=== PATIENT | male | born 1995 | race Caucasian/White ===

== ENCOUNTER 2024-07-09 08:57 | Emergency (ER) | payer MEDICAID, SELFPAY ==
[2024-07-09 08:59] VITALS: BP 110/63; PULSE 70; RESP 15; TEMP 36.6; O2SAT 99
--- NOTE | 2024-07-09 09:00 | DI.RAD_ITS ---
Exam(s) XR ANKLE LT COMPLETE EXAM: XR ANKLE LT COMPLETE CLINICAL HISTORY: left lateral pain post twisting injury TECHNIQUE: 2D digital imaging was performed. Three views. COMPARISON: No exams were available for comparison FINDINGS: BONES: No acute fracture is present. No bony destructive lesion is seen. JOINTS:The ankle mortise is normally aligned. SOFT TISSUE: Normal. IMPRESSION: Unremarkable radiographs of the left ankle. DATA REPOSITORY: RADIATION DOSE DELIVERED:
[2024-07-09] MEDS: Ibuprofen 600 MG TAB PO (09:27)
[2024-07-09] MEDS: oxyCODONE 5 MG TAB PO (09:28)
--- NOTE | 2024-07-09 09:31 | ED.GENADUL_ITS ---
Discharge Plan Disposition Patient Disposition: Home Condition: Stable Discharge Details Clinical Impression: Sprain of ankle Primary Care Provider: Devin Koch ED Provider: Maribel Yadav Home Meds and New Rx's Prescriptions: Continued albuterol sulfate 90 mcg/actuation HFA aerosol inhaler 2 inh INHALATION Q6H PRN Patient Comments: INHALE TWO PUFFS BY MOUTH EVERY 6 HOURS NEEDED FOR WHEEZING Discharge Instructions Instructions: Ankle Sprain ED Additional Instructions: please follow-up for repeat assessment in one week with persistent pain motrin/tylenol as needed for pain ice, elevated weightbearing as tolerated return earlier should new concerns arise Referrals: Devin Koch [Primary Care Provider] - HPI General Date/Time Provider Initiated Documentation: 07/09/24 09:07 . HPI Narrative: 29-year-old male presenting with injury to left ankle. Patient states he stepped off a porch twisted his ankle. Denies any additional injuries. States he is unable to bear weight secondary to pain. Related Data Home Medications ?Medication ?Instructions ?Recorded ?Confirmed albuterol sulfate 90 mcg/actuation 2 inh inhalation Q6H PRN 07/09/24 07/09/24 aerosol inhaler Allergies Allergy/AdvReac Type Severity Reaction Status Date / Time No Known Allergies Allergy Unverified 07/09/24 09:05 General Stated Complaint: Orthopedic TIMUR: 4 Exam Narrative Exam Narrative: Left lateral ankle with tenderness, no visible signs of trauma, no tenderness to proximal tib-fib, neurovascularly intact, no tenderness to left foot, Course Vital Signs Vital signs: Vital Signs Temperature 36.6 C 07/09/24 08:59 Pulse 70 07/09/24 08:59 Respiratory Rate 15 07/09/24 08:59 Blood Pressure 110/63 07/09/24 08:59 Pulse Oximetry 99 07/09/24 08:59 Temperature 36.6 C 07/09/24 08:59 Temperature Source Temporal Artery Scan 07/09/24 08:59 Pulse 70 07/09/24 08:59 Respiratory Rate 15 07/09/24 08:59 Respiratory Effort Normal 07/09/24 09:04 Blood Pressure 110/63 07/09/24 08:59 Pulse Oximetry 99 07/09/24 08:59 Oxygen Delivery Method Room Air 07/09/24 08:59 Oxygen Flow Rate 0 07/09/24 08:59 Pain Level 9 07/09/24 09:28 Medical Decision Making 29-year-old male presenting with left ankle injury. No significant visible evidence of trauma. X-ray of ankle was ordered which does not show evidence of acute fracture or obvious effusion. Pending virtual radiology over read, significant delay in reading, placement was placed in a boot and crutches and made aware that we will notify you if there is any discrepancy in the read. He is encouraged to follow-up with his doctor in 1 week for reassessment repeat imaging at their discretion. Will take ibuprofen and Tylenol. Pain. Return precautions reviewed patient expressed understanding Quality:SDOH Health Related Social Needs: No Data to Display PFSH All Active Problems (Updated 07/09/24 @ 10:05 by DERIK Medina) Sprain of ankle (Acute) Social History Smoking/Tobacco Use Status: Never Smoking risk assessment performed?: Yes Alcohol Intake: never Drug use: Daily Substance use type: marijuana Details: helps to sleep PAWSS Have you Been Recently Intoxicated or Drunk Within the Last 30 days?: No Have you Ever Experienced Previous Episodes of Alcohol Withdrawal?: No Have you ever Experienced Withdrawal Seizures?: No Have you ever Experienced Delirium Tremens(DT)s?: No Have you ever undergone Alcohol Rehabilitation Treatment (i.e, inpt ot outpatient treatment programs)?: No Have you ever Experienced Blackouts?: No Have you ever Combined Alcohol with other Downers within the last 90 days?: No Have you ever Combined Alcohol with any other Substance of Abuse during the last 90 days?: No Result: 0
--- NOTE | 2024-07-09 10:02 | NUR.NOTE ---
Nursing Note:This RN received report and transfer of care from Jane Felix RN at this time
--- NOTE | 2024-07-09 10:30 | DI.VRAD_ITS ---
PROCEDURE INFORMATION: Exam: XR Left Ankle Exam date and time: 07/09/2024 9:46 AM Age: 29 years old Clinical indication: Injury or trauma; Other: Twisting; Other: Twisted TECHNIQUE: Imaging protocol: Radiologic exam of the left ankle. Views: 3 or more views. COMPARISON: No relevant prior studies available. FINDINGS: Bones/joints: Normal. Soft tissues: Normal. IMPRESSION: No acute findings. Dictated and Authenticated by: Abelardo Bloom MD. Ordering:IBETH López MD
== END 2024-07-09 10:37 | disposition home or self-care (01) ==
PROVIDERS: Emergency Provider Physician Assistant; PCP Physician Assistant
DX: S93.402A Sprain of unspecified ligament of left ankle, initial encounter (principal); X50.1XXA Overexertion from prolonged static or awkward postures, initial encounter; Y93.01 Activity, walking, marching and hiking; Y92.018 Other place in single-family (private) house as the place of occurrence of the external cause
CPT/HCPCS: 36415; 99284; 73610; 99283